=== PATIENT | female | born 1945 | race Caucasian/White ===

== ENCOUNTER 2020-07-17 18:55 | Emergency (ER) | payer OTHER ==
--- OUTSIDE RECORDS SUMMARY | 2020-07-17 18:58 | XMS REPORT | Continuity of Care Document ---
:1945 Author Organization [facility] t Address [address] [place] [address] Care Team Providers Name Role Phone MD Mitul DALAL. Attending Clinician Unavailable KATLIN Attending Clinician Unavailable MD Hair DALAL Admitting Clinician Unavailable Payers Payer Name Policy Type Policy Number Effective Date Expiration Date S ource Problems Condition Condition Condition Status Onset Resolution Last Treating Co mments Source Name Details Category Date Date Treatment Clinician Date ADULT Condition Active 2014-07-21 Mem oria PREVENTIVE 07-21 09:16:00 l CARE ADULT 00:00: [place] PREVENTIVE 00 CARE Active 07/21/2014 Condition [employer] SCREENING Condition Active 2014-07-21 Memoria FOR 07-21 09:16:00 l DIABETES 00:00: Nic MELLITUS SCREENING 00 FOR DIABETES MELLITUS Active 07/21/2014 Condition [employer] SCREENING Condition Active 2014-07-21 Memoria FOR 07-21 09:16:00 l DEFICIENCY 00:00: Nikolas n ANEMIA NEC SCREENING 00 FOR DEFICIENCY ANEMIA NEC Active 07/21/2014 Condition [employer] SCREENING Condition Active 2014-07-21 Memoria FOR 07-21 09:16:00 l THYROID 00:00: Nic DISORDERS SCREENING 00 FOR THYROID DISORDERS Active 07/21/2014 Condition [employer] SCREENING Condition Active 2014-07-21 Memoria FOR LIPOID 07-21 09:16:00 l DISORDERS 00:00: Nic SCREENING 00 FOR LIPOID DISORDERS Active 07/21/2014 Condition [employer] SCREENING Condition Active 2014-07-21 Memoria MAMMOGRAM 07-21 09:16:00 l 00:00: [place] SCREENING 00 MAMMOGRAM Active 07/21/2014 Condition [employer] SCREENING Condition Active 2014-07-21 Memoria FOR 07-21 09:16:00 l OSTEOPOROS 00:00: Nikolas n IS SCREENING 00 FOR OSTEOPOROS IS Active 5 Condition 07/21/2014 Medical Group Hand pain Problem Active 2015-10-13 Me moria (finding) 04:01:09 l Hand Nic pain (finding) Active Problem 10/13/2015 [facility] Irritable Problem Active 2015-10-13 Me moria colon 04:01:09 l (disorder) Nikolas n Irritable colon (disorder) Active Problem 10/13/2015 [facility] Allergies, Adverse Reactions, Alerts Allergy Allergy Status Severity Reaction(s) Onset Inactive Treating Comm ents Source Name Type Date Date Clinician codeine DA Active [facility] 10-20 [place] 00:00: d 00 [facility] hydrocod DA Active [facility] one 10-20 [place] 00:00: d 00 [facility] CODEINE CODEINE Active Memoria 07-21 l 00:00: [place] 00 codeine codeine Active Memoria l [place] levoflox levoflox Active Memori a acin acin l [place] Medications Ordered Filled Start Stop Current Ordering Indication Dosage Frequency Signature Comments Components Source Medication Medication Date Date Medication? Clinician (SIG) Name Name [facility] [place] An [place]erman 1,000 mL, Memor ia Medication 10-10 Soln-IV, l 14:04: IV, Once, [place] 00 first dose 10/11/15 9:04:00 CDT, stop date 10/11/15 9:04:00 CDT [facility] [place] An Berman 1,000 mL, Memor ia Medication 10-10 Soln-IV, l 13:50: IV, Once, Nic first dose 10/11/15 8:50:00 CDT, stop date 10/11/15 8:50:00 CDT dexamethaso No An Berman 8 mg = 2 Memoria ne 29 mL, l 13:42: Injection, [place] 00 IV, Once, first dose 10/11/15 8:42:00 CDT, stop date 10/11/15 8:42:00 CDT ondansetron No An Berman 4 mg = 2 Memoria 29 mL, l 13:41: Injection, [place] 00 IV, Once, first dose 10/11/15 8:41:00 CDT, stop date 10/11/15 8:41:00 CDT ceFAZolin No An Berman 2 gm, [place] kathrine 10-10 Soln-IV, l 13:26: IV, Once, Nic first dose 10/11/15 8:26:00 CDT, stop date 10/11/15 8:26:00 CDT propofol No An Berman 200 mg = Me moria 10-10 20 mL, l 13:25: Emulsion, [place] 00 IV, Once, first dose 10/11/15 8:25:00 CDT, stop date 10/11/15 8:25:00 CDT fentaNYL No An Berman 100 mcg = M emoria 10-10 2 mL, l 13:22: Injection, Nic 00 IV, Once, first dose 10/11/15 8:22:00 CDT, stop date 10/11/15 8:22:00 CDT midazolam No An Berman 2 mg = 2 M emoria 829 mL, l 13:21: Injection, Nic 00 IV, Once, first dose 10/11/15 8:21:00 CDT, stop date 10/11/15 8:21:00 CDT ethyl No French M 1 sprays, [place] kathrine chloride 10-10 Lastoczy [place], l topical 13:00: TOP, Once, Herm pro spray 00 first dose 10/11/15 8:00:00 CDT, stop date 10/11/15 8:00:00 CDT Demerol HCl No Vishal De 12.5 mg = Memoria 10-10 Mathew 0.5 mL, l 12:41: Injection, Nic 00 IV Push, q5min PRN for Pain Mild (1-3), order duration: 4 doses, first dose 10/11/15 7:41:00 CDT, stop date Limited # of times morphine 2016-0 No Vishal De 2 mg = 0.2 Memoria 8-29 Mathew mL, l 12:41: Injection, Nic 00 IV Push, q5min PRN for pain severe (7-10), order duration: 5 doses, first dose 10/11/15 7:41:00 CDT, stop date Limited # of times ondansetron 2015-0 No Vishal De 4 mg = 2 Memoria 8-29 Mathew mL, l 12:41: Injection, [place] 00 IV Push, q30min PRN for nausea/vom iting, order duration: 2 doses, first dose 10/11/15 7:41:00 CDT, stop date Limited # of times promethazin 0 No Vishal De 12.5 mg, Memoria e IVPB 8-29 Mathew IV l 12:41: Piggyback, [place] 00 Once PRN for nausea/vom iting, infuse over 15 minutes, first dose 10/11/15 7:41:00 CDT Demerol HCl 0 No Vishal De 12.5 mg = Memoria 8-29 Mathew 0.5 mL, l 12:35: Injection, Nic 00 IV Push, q5min PRN for shivers, order duration: 4 doses, first dose 10/11/15 7:35:00 CDT, stop date Limited # of times morphine 2015-0 No Vishal De 2 mg = 0.2 Memoria 8-29 Mathew mL, l 12:35: Injection, Nic 00 IV Push, q5min PRN for pain severe (7-10), order duration: 5 doses, first dose 10/11/15 7:35:00 CDT, stop date Limited # of times promethazin 2015-0 No Vishal De 12.5 mg, Memoria e IVPB 8-29 Mathew IV l 12:35: Piggyback, Nic 00 Once PRN for nausea/vom iting, infuse over 15 minutes, first dose 10/11/15 7:35:00 CDT ondansetron 2015-0 No Vishal De 4 mg = 2 Memoria 8-29 Mathew mL, l 12:35: Injection, [place] 00 IV Push, q30min PRN for nausea/vom iting, order duration: 2 doses, first dose 10/11/15 7:35:00 CDT, stop date Limited # of times LR 1,000 mL No French M 1,000 mL, Memoria 10-10 Lastoczy IV, 100 l 12:03: mL/hr, Nic 00 start date 10/11/15 7:03:00 CDT, For Adults ceFAZolin No Arthur O 2 gm, Mem oria 10-10 [place] Soln-IV, l 12:00: IV Nic 00 Piggyback, Once, infuse over 30 minutes, first dose 10/11/15 7:00:00 CDT, stop date 10/11/15 7:00:00 CDT, Prophylaxi s BIOTIN TABS Yes 1 tablet Me moria 07-21 every day l 00:00: CITRUCEL Yes 1 tablet Memor ia TABS 07-21 every day l 00:00: PREMARIN Yes Apply per [place] kathrine 0.625 MG/GM 07-21 vagina l CREA 00:00: once a day Vital Signs Vital Name Observation Time Observation Value Comments Source Respitory Rate 2015-10-11 14:27:00 Memori al [place] Systolic (mm Hg) 2015-10-11 14:27:00 Tristian rial Nic Heart Rate 2015-10-11 14:27:00 [facility] [place] Heart Rate 2015-10-11 14:10:00 [facility] Nic Respitory Rate 2015-10-11 14:10:00 Memori al [place] Systolic (mm Hg) 2015-10-11 14:10:00 Tristian rial Nic Heart Rate 2015-10-11 14:05:00 Memorial Nic Systolic (mm Hg) 2015-10-11 14:05:00 Tristian rial Nic Respitory Rate 2015-10-11 14:05:00 Memori al [place] Temperature Oral (F) 2015-10-11 13:55:00 36.3 Liza [facility] [place] Height 2015-10-06 17:37:00 165.1 cm [facility] Nic Weight 2015-10-06 17:37:00 [facility] [place] Temperature Oral (F) 2015-10-06 17:37:00 36.7 Liza [facility] Nic Heart Rate 2014-07-21 13:01:40 [facility] Nic Temperature Oral (F) 2014-07-21 13:01:40 98.4 F [facility] Nic Height 2014-07-21 13:01:40 [facility] [place] Weight 2014-07-21 13:01:40 [facility] Nic Systolic (mm Hg) 2014-07-21 13:01:40 Tristian rial [place] Diastolic (mm Hg) 2014-07-21 13:01:40 Mem orial [place] Respitory Rate 2014-07-21 13:01:40 Memori al Nic Diastolic (mm Hg) 2013-09-19 19:30:00 Mem orial Nic Respitory Rate 2013-09-19 19:30:00 Memori al [place] Systolic (mm Hg) 2013-09-19 19:30:00 Tristian rial Nic Heart Rate 2013-09-19 19:30:00 [facility] Nic Systolic (mm Hg) 2013-09-19 19:25:00 Tristian rial [place] Respitory Rate 2013-09-19 19:25:00 Memori al [place] Heart Rate 2013-09-19 19:25:00 [facility] [place] Diastolic (mm Hg) 2013-09-19 19:25:00 Mem orial [place] Diastolic (mm Hg) 2013-09-19 19:20:00 Mem orial [place] Heart Rate 2013-09-19 19:20:00 [facility] Nic Systolic (mm Hg) 2013-09-19 19:20:00 Tristian rial [place] Respitory Rate 2013-09-19 19:20:00 Memori al [place] Temperature Oral (F) 2013-09-19 19:16:00 37.1 Liza [facility] Nic Weight 2013-09-19 17:47:00 [facility] Nic Temperature Oral (F) 2013-09-19 17:47:00 36.9 Liza [facility] Nic Height 2013-09-19 17:47:00 165.1 cm [facility] [place] Procedures Procedure Date / Time Performed Performing Clinician Sourc e vaginal Pap smear results 2012-02-13 14:22:47 Me morial [place] mammogram 2012-02-13 14:22:38 [facility] colonoscopy 2011-02-12 14:22:06 [facility] Her reardon Cholecystectomy [facility] [place] Hemorroidectomy [facility] [place] Hysterectomy [facility] [place] Right total hip [facility] Nic Tonsillectomy [facility] [place] Umbilical hernia Memorial Nikolas n Encounters Start End Encounter Admission Attending Care Care Encounter Source Date/Time Date/Time Type Type Clinicians Facility Department ID 2018-12-09 Outpatient MHNE MIKIE [id number] MH NE 08:40:32 2020-07-08 2020-07-08 Outpatient KATLIN [facility] [id number] [place] 00:00:00 00:00:00 KALYN 347 Method i 2020-07-08 2020-07-08 Outpatient KATLIN [facility] [id number] [place] 00:00:00 00:00:00 KALYN 617 Method i 2020-07-06 2020-07-06 Emergency E MHNE MHNE [id number] MHNE 11:25:00 11:25:00 2020-06-22 2020-06-22 Outpatient KATLIN [facility] [id number] [place] 00:00:00 00:00:00 KALYN 173 Method i 2020-06-22 2020-06-22 Outpatient KATLIN [facility] [id number] [place] 00:00:00 00:00:00 KALYN 502 Method i 2020-06-12 2020-06-12 Emergency E MHNE MHNE [id number] MHNE 09:11:00 09:11:00 2019-09-24 2019-09-24 Outpatient MHNE MIKIE [id number] MHNE 11:19:00 11:19:00 2019-09-18 2019-09-18 Outpatient MHNE MIKIE [id number] MHNE 07:40:00 07:40:00 2018-12-30 2018-12-30 Emergency E MHNE MHNE [id number] MHNE 16:21:00 16:21:00 2015-10-11 2015-10-11 Outpatient [facility] [id number] Memoria 06:31:16 09:40:00 Nic Nic [facility] 2013-09-19 2013-09-19 Outpatient [facility] [id number] Memoria 11:31:56 14:42:[facility] Results Test Description Test Time Test Comments Results Result Comments Source SARS-CoV-2 (COVID-19) RNA [Presence] in Respiratory sp ecimen by 2020-07-08 11:42:17 ULISSES with probe detection Test Item Value Reference Range Interpretation Comme nts SARS-CoV-2 (COVID-19) RNA [Presence] in Respiratory Not detected No t-Detected specimen by ULISSES with probe detection (test code = 06227-0) Whether patient is employed in a healthcare setting (test code = 27787-5) Whether the patient has symptoms related to condition of interest (test code = 45890-4) Patient was hospitalized because of this condition (test code = 85136-6) Whether the patient was admitted to intensive care unit (ICU) for condition of interest (test code = 66907-3) Whether patient resides in a congregate care setting (test code = 46808-4) - CT ABD PELVIS [id number] 09:01:00 FAX: Harmeet Santos MD [phone] [place]: St: REG FAX: Shara Castro Maurice [phone] Name: MONA BUCIO [facility] : 1945 Age/S: 72/F [address] Unit: [id number] Loc: [place] [address] Phys: Harmeet Wu MD Acct: [id number] Dis Date: Status: REG CLI PHONE #: [phone] Exam Date: 11/22/2018 0833 FAX #: [phone] Reason: NAUSEA WITH VOMITING, UNSPECIFIED,ABDOMINAL GT EXAMS: CPT CODE: [id number] CT ABD PELVIS W/CONT 04434 LOCATION: T18 EXAM: CT ABDOMEN AND PELVIS WITH CONTRAST INDICATION: NAUSEA WITH VOMITING, UNSPECIFIED,ABDOMINAL PAIN COMPARISON: None. TECHNIQUE: Multiple CT images of the abdomen and pelvis were obtained with reconstructions in the coronal and sagittal planes. 100 ml of Isovue 370 was given intravenously. Up-to-date CT equipment and radiation dose reduction techniques were utilized. Automatic exposure control was utilized. FINDINGS: Lung bases are clear. Tiny hepatic cyst versus biliary hamartoma measuring 4 mm in the right lobe of liver. Liver is otherwise normal. Spleen, adrenal glands and pancreas normal. Gallbladder removed. Common bile duct measures 8 mm in diameter. Kidneys enhance symmetrically. No focal abnormality or hydronephrosis is seen. There is no hydroureter. Urinary bladder is normal. Uterus is absent. Artifact from the right total hip arthroplasty limits evaluation of the pelvis. Pelvic phleboliths present. Diverticulosis seen extending throughout the entire colon. No additional evidence of acute diverticulitisidentified. The appendix is not clearly seen. No inflammatory changes in the right lowerquadrant present to suggest acute appendicitis. Prominent fluid-filled small bowel loops noted throughout the abdomen and pelvis. Postop changes in the right upper quadrant present. Transition of small bowel seen at the anastomosis concerning for partial small bowel obstruction. Small bowel loops measure up to 5 cm. No free air or free fluid is present. Moderate atherosclerotic disease of the aorta noted. Bones are intact. IVC is normal. IMPRESSION: Fluid-filled small bowel loops measuring up to 5 cm with transition at the anastomosis in the right upper quadrant concerning for partial small bowel obstruction. No freeair or free fluid. PAGE 1 Signed Report (CONTINUED) FAX: Harmeet Santos MD [phone] [place]: St: REG FAX: Shara ReynoldsesCastro Zamorano [phone] Name: MONA BUCIO [facility] : 1945 Age/S: 72/F [address] Unit: [id number] Loc: [place] [address] Phys: Harmeet Wu MD Acct: [id number] Dis Date: Status: REG CLI PHONE #: [phone] Exam Date: 11/22/2018 0833 FAX #: [phone] Reason: NAUSEA WITH VOMITING, UNSPECIFIED,ABDOMINAL GT EXAMS: CPT CODE: [id number] CT ABD PELVIS W/CONT 22955 <Continued> at 0901 Reported and signed by: Javier Allen MD CC: Harmeet Wu; Castro Maurice MD Technologist: Ivonne Mclain; YAS NAIDU Trnscrd Dt/Tm: 11/22/2018 (09) t.SDR.JP19 Orig Print D/T: S: 11/22/2018 (0905 PAGE 2 Signed ReportBEDSIDE [id number] 08:35:00 Test Item Value Reference Range Interpretation Comments BEDSIDE CREATININE (test code = 0.8 mg/dL 0.52-1.04 N CREATBED) [id number] 18:34:00Reported (10/06/2015 13:34:00)[facility] UAYYGPVGCK4250-91-71 18:34:0041.9[facility] SfbqckvYWLIPBODIM8194-40-88 18:34:00 14.3[facility]orial RmvvarpCXJBWOQCBR2634-98-50 18:34:002.4[facility] 2015-10-06 18:34:00Reported (10/06/2015 13:34:00)[facility] 2015-10-06 18:34:000.64[facility] QgdhzqqFISKBWDCWS5186-40-75 18:34:62594Lrwtxtgp WwofrevTAWJGNYFSG2686-87-79 18:34:004.4[facility]orial MqaecgoQSAKXTVRXW2283-38-68 18:34:0012[facility] BrmjpkpYVFSNHHKVF1413-15-27 18:34:86060Kjcfodwo [place] YIZUCOMYLR0890-21-87 18:34:0025[facility] HyrpikuLEAHDPJAYZ9584-90-25 18:34:0091 Memorial TpcmmfzLWXJNHEGIX7959-11-47 18:34:008.7[facility] 2015-10-06 18:34:0013.4[facility] MrzaoetCYWMEZMPPG7526-48-78 18:34:0079[facility] QperrexGIRNNKKLQH2422-79-69 18:34:00Reported (10/06/2015 13:34:00)[facility] IxdiiwaVvjudkrhg4783-70-46 14:16:0021[facility]orial JrdifgwVdwjbnhro2900-45-66 14:16:47145Hkdnclxc DtnxanjGqxgquwdny0458-07-15 14:16:0014.8[facility] [place] Yxbsfelnxy3100-03-25 14:16:0045.4[facility]orial AddjkekYgfrhboasf4173-65-42 14:16:00 281 K/CMMMemorial YzgtfgoXhvsrgpqj7606-36-76 14:16:006.0[facility] Nic Mqbolppkd8239-90-00 14:16:003.700[facility] NchnziaZffxxkrcg1566-30-43 14:16:78542 Memorial KkghnepYcjhbqmok7275-05-17 14:16:94049Boylxenf HermannChemistry 2014-07-21 14:16:0048[facility] InazswfGnjsmhsrt6199-69-14 14:16:0069Memorial NzesszqUhpzpaasj8898-59-92 14:16:39151 MEQ/LMemorial WyqbeamPprhtqmiz6508-02-49 14:16:004.1 MEQ/LMemorial JcaxmjuQyajlzbvp0569-41-73 14:16:000.9[facility] [place] Gjiosuwzc3502-08-03 14:16:009[facility] QfsjqzoSeetgdtki2739-22-70 14:16:00 Test Item Value Reference Range Interpretation Comments BUN/CREAT (test code = BUN/CREAT) 10 1 6-25 Memorial YpximmxEcebfosfl2928-67-31 14:16:003.6[facility]ann[facility] 2014-07-21 14:16:008.8[facility]orial AxpmpkdCektxtlqj7108-97-50 14:16:0026Mem[facility] QzchyulTJWWWHYGDI7468-65-55 17:47:0021Memorial HermannOb/Olr2825-52-73 14:22:47 NormalMemorial HermproOb/Add6555-22-87 14:22:47NormalMemorial [place]
[2020-07-17] MEDS ORDERED: DERMABOND SKIN ADHESIVE TOP ONE (19:59)
[2020-07-17] MEDS ORDERED: TETANUS & DIPHTHERIA TOX,ADULT 0.5 ML VIAL ONE (19:59)
--- NOTE | 2020-07-17 20:19 | RAD REPORT ---
EXAM DESCRIPTION: CT - Head Brain Wo Cont - 07/17/2020 8:11 pm CLINICAL HISTORY: PAIN Headache, drowsiness, trauma COMPARISON: Sacrum And Coccyx dated 07/17/2020 TECHNIQUE: All CT scans are performed using dose optimization technique as appropriate and may inclu de automated exposure control or mA/KV adjustment according to patient size. FINDINGS: No intracranial hemorrhage, hydrocephalus or extra-axial fluid collection.Mild brain atrop hy is noted.No areas of brain edema or evidence of midline shift. Opacification with hypertrophy the left maxillary antrum seen. The calvarium is intact. IMPRESSION: No acute intracranial abnormality. Chronic left maxillary sinusitis.
--- NOTE | 2020-07-17 20:25 | RAD REPORT ---
EXAM DESCRIPTION: RAD - Sacrum And Coccyx - 07/17/2020 8:12 pm CLINICAL HISTORY: PAIN COMPARISON: No comparisons FINDINGS: The bones are significantly demineralized. No acute fracture is evident. If pain persists or progresses, followup MR imaging of the sacrococcygeal region would suggested given the high degree of osteopenia.
[2020-07-17] MEDS ORDERED: ONDANSETRON 4 MG (ODT) TAB ONE (20:41)
[2020-07-17] MEDS ORDERED: MORPHINE 2 MG/ML SYR ONE (20:41)
--- NOTE | 2020-07-17 20:54 | ER ---
Nurse's Notes [facility] Name: Cheryl Najera Age: 74 yrs Sex: Female : 1945 Arrival Date: 07/17/2020 Time: 18:59 Bed 26 Private MD: Diagnosis: Left forearm skin tear;Fall on same level from slipping, tripping and stumbling;Contusion of lower back and pelvis;Superficial injury of head Presentation: 07/17 19:18 Chief complaint: Patient states: while opening the door I tripped and fell down hit my rr5 left arm on the wall then hit my tail bone and back of my head on a ceramic floor, no LOC no Nausea or vomiting not on blood thinner. Coronavirus screen: Client denies travel out of the [place] in the last 14 days. At this time, the client does not indicate any symptoms associated with coronavirus-19. Ebola Screen: Patient negative for fever greater than or equal to 101.5 degrees Fahrenheit, and additional compatible Ebola Virus Disease symptoms Patient denies exposure to infectious person. Patient denies travel to an Ebola-affected area in the 21 days before illness onset. Initial Sepsis Screen: Does the patient meet any 2 criteria? No. Patient's initial sepsis screen is negative. Does the patient have a suspected source of infection? No. Patient's initial sepsis screen is negative. Risk Assessment: Do you want to hurt yourself or someone else? Patient reports no desire to harm self or others. Onset of symptoms was July 17, 2020. 19:18 Method Of Arrival: Ambulatory rr5 19:18 Acuity: LUZ 3 rr5 Historical: - Allergies: 19:25 No Known Allergies; rr5 - Home Meds: 19:25 None [Active]; rr5 - PMHx: 19:25 UTI; Diverticulitis; rr5 - PSHx: 19:25 Cholecystectomy; Hysterectomy; Hernia repair; small intestine surgery; small bowel rr5 obstruction; - Immunization history:: Adult Immunizations up to date, Client reports receiving the 2nd dose of the Covid vaccine. - Social history:: Smoking status: unknown Patient/guardian denies using street drugs, tobacco products. Screenin:47 Abuse screen: Denies threats or abuse. Denies injuries from another. Nutritional zb screening: No deficits noted. Tuberculosis screening: No symptoms or risk factors identified. Fall Risk Fall in past 12 months (25 points). No secondary diagnosis (0 pts). No IV (0 pts). Ambulatory Aid- None/Bed Rest/Nurse Assist (0 pts). Gait- Normal/Bed Rest/Wheelchair (0 pts) Mental Status- Oriented to own ability (0 pts). Total Carney Fall Scale indicates Low Risk Score (25-44 pts). Fall prevention measures have been instituted. Side Rails Up X 2 Placed close to Nursing Station Frequent Obs/Assesments occuring Family Present and informed to notify staff if they need to leave bedside As available Patient and Family Educated on Fall Prevention Program and strategies. Assessment: 19:45 General: Appears in no apparent distress. Behavior is calm, cooperative, appropriate zb for age. Pain: Complains of pain in left parietal area, base of the skull, buttocks and left arm Pain currently is 7 out of 10 on a pain scale. Quality of pain is described as aching, sharp. Neuro: Level of Consciousness is awake, alert, obeys commands, Oriented to person, place, time, situation, Moves all extremities. Full function Gait is steady. Cardiovascular: Patient's skin is warm and dry. Respiratory: Airway is patent Respiratory effort is even, unlabored, Respiratory pattern is regular, symmetrical. GI: Abdomen is flat. Derm: Skin is fragile, is thin, has skin tears on LUE Skin is normal, Bruising that is dark purple, on right arm and left arm. Musculoskeletal: Circulation, motion, and sensation intact. Range of motion: intact in all extremities. 20:30 Reassessment: Patient appears in no apparent distress at this time. Patient and/or zb family updated on plan of care and expected duration. Pain level reassessed. Patient is alert, oriented x 3, equal unlabored respirations, skin warm/dry/pink. 21:31 Reassessment: Patient appears in no apparent distress at this time. Patient and/or zb family updated on plan of care and expected duration. Pain level reassessed. Patient is alert, oriented x 3, equal unlabored respirations, skin warm/dry/pink. d/c instructions given. patient ambulated out. dressing wrapped c/d/i. Vital Signs: 19:18 BP 107 / 77; Pulse 88; Resp 19; Temp 98.7; Pulse Ox 99% ; Weight 47.63 kg; Height 5 ft. rr5 4 in. (162.56 cm); Pain 7/10; 21:31 BP 112 / 80; Pulse 80; Resp 16; Pulse Ox 100% on R/A; zb 19:18 Body Mass Index 18.02 (47.63 kg, 162.56 cm) rr5 ED Course: 18:59 Patient arrived in ED. es 19:22 Triage completed. rr5 19:25 Arm band placed on right wrist. rr5 19:26 Mat Bradley, JOSE ALBERTO is PHCP. pm1 19:26 Antonio Alston MD is Attending Physician. pm1 19:37 Blanca Anderson, ROBERTO is Primary Nurse. zb 19:47 Patient has correct armband on for positive identification. Bed in low position. Call zb light in reach. Pulse ox on. NIBP on. Door closed. Noise minimized. 20:11 Sacrum And Coccyx XRAY In Process Unspecified. EDMS 20:11 CT Head Brain wo Cont In Process Unspecified. EDMS 21:33 No provider procedures requiring assistance completed. Patient did not have IV access zb during this emergency room visit. Administered Medications: 19:44 Drug: Tetanus-Diphtheria Toxoid Adult 0.5 ml {Unit Reactor Operator: EGT. Exp: zb 07/18/2021. Lot #: [id number]. } Route: IM; Site: right deltoid; 20:46 Follow up: Response: No adverse reaction zb 20:30 Drug: morphine 2 mg {Note: RASS 0.} Route: IM; Site: left deltoid; zb 20:46 Follow up: Response: No adverse reaction; Pain is decreased; RASS: Alert and Calm (0) zb 20:30 Drug: Zofran (Ondansetron) 4 mg Route: PO; zb 20:46 Follow up: Response: No adverse reaction zb Outcome: 20:53 Discharge ordered by MD. pm1 21:33 Discharged to home ambulatory, with family. zb 21:33 Condition: stable 21:33 Discharge instructions given to patient, family, Instructed on discharge instructions, follow up and referral plans. medication usage, Demonstrated understanding of instructions, follow-up care, medications, Prescriptions given X 2. 21:34 Patient left the ED. zb Signatures: Dispatcher [employer] EDDeepthi Gaxiola es Marinas, Mat, ROBOTICS SYSTEMS ENGINEER ROBOTICS SYSTEMS ENGINEER pm1 Scottie Workman, RN RN rr5 Blanca Anderson RN RN zb
--- NOTE | 2020-07-17 20:54 | EDPHYS ---
Physician Documentation [facility] Name: Cheryl Najera Age: 74 yrs Sex: Female : 1945 Arrival Date: 07/17/2020 Time: 18:59 Bed 26 Private MD: ED Physician Antonio Alston HPI: 07/17 19:46 This 74 yrs old Female presents to ER via Ambulatory with complaints of Fall pm1 Injury, Head Injury-Adult, Skin Tear(s). 19:46 Details of fall: The patient fell from an upright position, while walking. Onset: The pm1 symptoms/episode began/occurred just prior to arrival. Associated injuries: The patient sustained skin tear to left forearm, occipital area, contusion, coccyx, Pain. Severity of symptoms: in the emergency department the symptoms are unchanged. The patient has been recently seen by a physician: diagnosed with UTI at another ER about a week ago and has completed Cipro today . Patient tripped while walking and then fell against the wall and then slide down it, hit her tailbone on the floor, and then hit her head on the floor. Patient presenting with skin tear to dorsal aspect of left forearm. Historical: - Allergies: 19:25 No Known Allergies; rr5 - Home Meds: 19:25 None [Active]; rr5 - PMHx: 19:25 UTI; Diverticulitis; rr5 - PSHx: 19:25 Cholecystectomy; Hysterectomy; Hernia repair; small intestine surgery; small bowel rr5 obstruction; - Immunization history:: Adult Immunizations up to date, Client reports receiving the 2nd dose of the Covid vaccine. - Social history:: Smoking status: unknown Patient/guardian denies using street drugs, tobacco products. ROS: 19:46 Constitutional: Negative for fever, chills, and weight loss, Eyes: Negative for injury, pm1 pain, redness, and discharge, ENT: Negative for injury, pain, and discharge, Neck: Negative for injury, pain, and swelling, Cardiovascular: Negative for chest pain, palpitations, and edema, Respiratory: Negative for shortness of breath, cough, wheezing, and pleuritic chest pain, Abdomen/GI: Negative for abdominal pain, nausea, vomiting, diarrhea, and constipation. 19:46 MS/Extremity: Negative for injury and deformity. 19:46 Back: Positive for of the sacrum, pain. 19:46 Skin: Positive for skin tear to dorsal aspect of left forearm. 19:46 Neuro: Positive for headache, Negative for altered mental status, dizziness, numbness, tingling, weakness. Exam: 19:46 Constitutional: This is a well developed, well nourished patient who is awake, alert, pm1 and in no acute distress. 19:46 Back: No spinal tenderness. No costovertebral tenderness. Full range of motion. 19:46 Head/face: Noted is no obvious of injury or deformity except contusion, of the occipital area. 19:46 Eyes: Periorbital structures: appear normal, Extraocular movements: no acute changes, Conjunctiva: normal. 19:46 ENT: Mouth: Lips: normal, Oral mucosa: normal, pink and intact, moist. 19:46 Chest/axilla: Inspection: normal, Palpation: is normal. 19:46 Cardiovascular: Rate: normal, Rhythm: regular, Pulses: no pulse deficits are appreciated, Edema: pedal edema, that is mild. 19:46 Respiratory: Exam negative for acute changes, respiratory distress, shortness of breath. 19:46 Abdomen/GI: Inspection: abdomen appears normal, Palpation: abdomen is soft and non-tender, in all quadrants. 19:46 Skin: Appearance: normal except for affected area, injury, skin tear to dorsal aspect of left forearm. 19:46 Neuro: Orientation: is normal, Mentation: is normal, Motor: is normal, moves all fours. Vital Signs: 19:18 BP 107 / 77; Pulse 88; Resp 19; Temp 98.7; Pulse Ox 99% ; Weight 47.63 kg; Height 5 ft. rr5 4 in. (162.56 cm); Pain 7/10; 21:31 BP 112 / 80; Pulse 80; Resp 16; Pulse Ox 100% on R/A; zb 19:18 Body Mass Index 18.02 (47.63 kg, 162.56 cm) rr5 Laceration: 21:25 Wound Repair of 20cm ( 7.9in ) skin tear laceration to dorsal aspect of left forearm. pm1 Irregularly shaped.. Distal neuro/vascular/tendon intact. Wound prep: Extensive cleansing with hibiclenz by nurse, Wound irrigation with saline by me, Wound explored extensively, Copious irrigation. Skin closed with thin layer Adhesive skin closure using Dermabond. Dressed with Kerlix. Patient tolerated well. MDM: 19:35 Patient medically screened. pm1 20:51 Data reviewed: vital signs. Data interpreted: Pulse oximetry: on room air is 99 %. pm1 Interpretation: normal. Counseling: I had a detailed discussion with the patient and/or guardian regarding: the historical points, exam findings, and any diagnostic results supporting the discharge/admit diagnosis, radiology results, the need for outpatient follow up, to return to the emergency department if symptoms worsen or persist or if there are any questions or concerns that arise at home. 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 last prescription 09/2019. 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 Exp: zb 07/18/2021. Lot #: [id number]. } Route: IM; Site: right deltoid; 20:46 Follow up: Response: No adverse reaction zb 20:30 Drug: morphine 2 mg {Note: RASS 0.} Route: IM; Site: left deltoid; zb 20:46 Follow up: Response: No adverse reaction; Pain is decreased; RASS: Alert and Calm (0) zb 20:30 Drug: Zofran (Ondansetron) 4 mg Route: PO; zb 20:46 Follow up: Response: No adverse reaction zb Disposition: 07/17/20 20:53 Discharged to Home. Impression: Superficial injury of head, Left forearm skin tear, Fall on same level from slipping, tripping and stumbling, Contusion of lower back and pelvis. - Condition is Stable. - Discharge Instructions: Contusion, Tissue Adhesive Wound Care, Head Injury, Adult, Fall Prevention in the Home. - Prescriptions for Keflex 500 mg Oral Capsule - take 1 capsule by ORAL route every 12 hours for 10 days; 20 capsule. Tylenol- Codeine #3 300-30 mg Oral Tablet - take 1 tablet by ORAL route every 6 hours As needed; 12 tablet. - Medication Reconciliation Form, Thank You Letter, Antibiotic Education, Prescription Opioid Use form. - Follow up: Emergency Department; When: As needed; Reason: Worsening of condition. Follow up: Private Physician; When: 2 - 3 days; Reason: Recheck today's complaints, Continuance of care, Re-evaluation by your physician. - Problem is new. - Symptoms have improved. 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 Impression: Contusion of other part of pm1 headLeft forearm skin tear; Fall on same level from slipping, tripping and stumbling; Contusion of lower back and pelvis. Condition is Stable. Forms are Medication Reconciliation Form, Thank You Letter, Antibiotic Education, Prescription Opioid Use. Follow up: Emergency Department; When: As needed; Reason: Worsening of condition. Follow up: Private Physician; When: 2 - 3 days; Reason: Recheck today's complaints, Continuance of care, Re-evaluation by your physician. Problem is new. Symptoms have improved. pm1 21:34 20:57 07/17/2020 20:53 Discharged to Home. Impression: Superficial injury of headLeft zb forearm skin tear; Fall on same level from slipping, tripping and stumbling; Contusion of lower back and pelvis. Condition is Stable. Discharge Instructions: Contusion, Tissue Adhesive Wound Care, Fall Prevention in the Home, Head Injury, Adult. Prescriptions for Keflex 500 mg Oral Capsule - take 1 capsule by ORAL route every 12 hours for 10 days; 20 capsule. and Forms are Medication Reconciliation Form, Thank You Letter, Antibiotic Education, Prescription Opioid Use. Follow up: Emergency Department; When: As needed; Reason: Worsening of condition. Follow up: Private Physician; When: 2 - 3 days; Reason: Recheck today's complaints, Continuance of care, Re-evaluation by your physician. Problem is new. Symptoms have improved. pm1
[2020-07-17 21:42] VITALS: TEMP 98.7
[2020-07-17 21:44] VITALS: BP 112/80; O2SAT 100
== END 2020-07-17 21:34 | disposition home or self-care (01) ==
LOC: ER 18:55
PROC: 0JQH0ZZ Repair Left Lower Arm Subcutaneous Tissue and Fascia, Open Approach (ICD-10-PCS; principal; 2020-07-17)
DX: S51.812A Laceration without foreign body of left forearm, initial encounter (principal); S30.0XXA Contusion of lower back and pelvis, initial encounter; W01.198A Fall on same level from slipping, tripping and stumbling with subsequent striking against other object, initial encounter; Z23 Encounter for immunization
CPT/HCPCS: 70450; 72220; 90471; 90714; 96372; 99284; 12005; J2270